=== PATIENT | male | born 1955 | race Caucasian/White ===

== ENCOUNTER 2020-11-15 14:48 | Inpatient (IN) | payer MEDICARE, SELFPAY ==
[2020-11-15] VITALS (7 sets, daily range): BP systolic 110–125; BP diastolic 74–84; PULSE 72–86; RESP 16–18; TEMP 36.1–37; O2SAT 96–98; BMI 24.1; BMI 24.0
--- NOTE | 2020-11-15 15:29 | EDS_ITS ---
HPI History of Present Illness Chief Complaint: ETOH Intox Informant: patient Onset/Context/Timing Onset: Today Context: Gradual Onset Timing: Continuous Worsened by: Nothing Relieved by: Nothing Associated Symptoms Associated Symptoms: Positive for vomiting*, diarrhea* and tremor; Negative for fever*, rash*, seizure, palpatations, change in mental status, trauma, suicidal ideation and homicidal ideation Narrative Narrative: Presents requesting alcohol detox. Patient states he drinks 1 pint of scotch per day. Patient states his last drink was was this morning. Patient states the other day he had some convulsions in his legs. Patient admits to some nausea, vomiting, and diarrhea. Patient denies any hematemesis or coffee- ground emesis. Patient denies any melena or hematochezia. Patient denies any visual or auditory hallucinations. Patient states he does have some floaters in his eyes occasionally and states that sometimes he is more aware of the floaters which cause some waviness in his vision. Patient states she does not see any other people or hear any voices. Patient denies any suicidal or homicidal ideations. Patient has been through detox before. Patient states he was in detox in [place] at [facility] but his last detox was in [place] several months ago. [facility] Medical History Atrial fibrillation COPD (chronic obstructive pulmonary disease) Coronary artery disease Myocardial infarction Pulmonary embolism Stroke Home Medications albuterol sulfate 2 puff INHALATION DAILY PRN PRN 11/15/20 [History Last Taken Unknown] apixaban [Eliquis] 10 mg PO BID 11/15/20 [History Last Taken Unknown] aspirin [Baby Aspirin] 81 mg PO DAILY 11/15/20 [History Last Taken Unknown] atorvastatin 40 mg PO DAILY 11/15/20 [History Last Taken Unknown] cholecalciferol (vitamin D3) [Vitamin D3] 50 mcg PO DAILY 11/15/20 [History Last Taken Unknown] duloxetine 60 mg PO DAILY 11/15/20 [History Last Taken Unknown] fluticasone propionate 1 spray INTRANASAL DAILY 11/15/20 [History Last Taken Unknown] hydroxyzine HCl 25 mg PO TID PRN 11/15/20 [History Last Taken Unknown] magnesium 400 mg PO DAILY 11/15/20 [History Last Taken Unknown] melatonin 3 mg PO QHS 11/15/20 [History Last Taken Unknown] metoprolol succinate 25 mg PO DAILY 11/15/20 [History Last Taken Unknown] metoprolol succinate 50 mg PO QHS 11/15/20 [History Last Taken Unknown] milk thistle 1,000 mg PO DAILY 11/15/20 [History Last Taken Unknown] fmbzusgc-vvy-IS-lycopen-lutein [Centrum Silver Men] 1 tab PO DAILY 11/15/20 [History Last Taken Unknown] pantoprazole 40 mg PO DAILY 11/15/20 [History Last Taken Unknown] potassium 99 mg PO DAILY 11/15/20 [History Last Taken Unknown] thiamine HCl (vitamin B1) [Vitamin B-1] 50 mg PO DAILY 11/15/20 [History Last Taken Unknown] trazodone 50 mg PO QHS 11/15/20 [History Last Taken Unknown] Allergy/AdvReac Type Severity Reaction Status Date / Time No Known Allergies Allergy Verified 11/15/20 14:52 Family History Father Cancer Heart disease Alcoholism Mother Alcoholism Surgical History H/O cardiac radiofrequency ablation Hx of cervical discectomy Social History (Updated 11/15/20 @ 16:38 by Markus GUTIERREZ) household members: family and children housing: house Smoking Status: Current every day smoker tobacco type: cigarettes Smoking packs per day: 1 Smoking cigarettes per day: 20.0 Years smoked: 30 Smoking pack-years: 30.00 alcohol intake: current alcohol intake frequency: 3 or more drinks per day Alcohol type: hard liquor substance use type: marijuana ROS ROS ED Constitutional Constitutional ED: Denies chills or fever(s) Eyes Eyes: Reports change in vision; Denies blurry vision or diplopia ENT ENT ED: Denies rhinorrhea or sore throat Cardiovascular Cardiovascular: Denies chest pain or palpitations Respiratory/Chest Respiratory/Chest: Denies cough or dyspnea Gastrointestinal Gastrointestinal: Reports diarrhea, nausea and vomiting Genitourinary Genitourinary ED: Denies dysuria or hematuria Musculoskeletal Musculoskeletal: Reports back pain and neck pain Integumentary Denies abscess or rash Neurologic Neurologic: Reports weakness; Denies headache(s) Allergic/Immunologic Allergic/Immunologic ED: Denies mouth swelling or urticaria EXAM Physical Exam Const Vital Signs: 11/15/20 14:49 11/15/20 16:27 Temperature 97 F L Temperature Source Temporal Pulse Rate 86 78 Respiratory Rate 16 Blood Pressure 110/77 Blood Pressure Mean 88 Pulse Ox 96 96 Oxygen Delivery Method Room Air Room Air Positive well nourished and well developed General Appearance ED: well developed HEENT Reports moist mucous membranes Neck supple and no JVD Resp normal respiratory effort and clear to auscultation bilaterally Cardio regular rate, regular rhythm and no murmurs GI normal to inspection, nondistended, normoactive bowel sounds and non-tender Palpation: soft Extremity normal to inspection General Extremety ED: Negative for edema or tenderness General Extremity: Negative for edema Neuro oriented x3, CN's II-XII intact bilaterally and no sensory deficits noted Sensorium / Orientation: alert Motor Exam: strength 5/5 throughout Psych mental status grossly normal Skin no rashes or lesions noted MDM MDM MDM Narrative Medical decision making narrative: CBC shows mild anemia with a hemoglobin of 11.6 hematocrit 36.4. Platelets were normal. PT with INR and PTT were essentially within normal limits. Comprehensive metabolic profile shows a slig htly elevated AST of 84 and ALT of 83. Serum alcohol level was elevated at 222. Urine tox screen is ordered and pending. Case was discussed with the hospitalist. She will admit the patient to the hospital for alcohol detox. Patient understands and is agreeable with the plan. All questions were answered. Lab Data Attestation: I reviewed the patient's lab results. Labs: Laboratory Results - last 24 hr 11/15/20 11/15/20 11/15/20 15:14 15:14 15:14 WBC 5.1 RBC 3.95 L Hgb 11.6 L Hct 36.4 L MCV 92.2 MCH 29.4 MCHC 31.9 L RDW Std Deviation 57.1 H RDW Coeff of Clara 17.0 H Plt Count 196 MPV 9.7 Immature Gran % (Auto) 0.200 Neut % (Auto) 52.2 Lymph % (Auto) 37.4 [place] % (Auto) 8.6 Eos % (Auto) 1.2 Baso % (Auto) 0.4 Absolute Neuts (auto) 2.7 Absolute Lymphs (auto) 1.91 Nucleated RBC % 0 PT 15.1 H INR 1.3 APTT 24.2 Sodium 144 Potassium 4.2 Chloride 107 Carbon Dioxide 27.0 Anion Gap 10 BUN 18 Creatinine 1.00 Estim Creat Clear Calc 80.83 Est GFR (MDRD) Af Amer 96 Est GFR (MDRD) Non-Af 80 BUN/Creatinine Ratio 18.0 Glucose 100 Calcium 8.7 Phosphorus Magnesium 2.0 Total Bilirubin 0.30 AST 84 H ALT 83 H Alkaline Phosphatase 93 Total Protein 6.9 Albumin 3.3 Globulin 3.6 Albumin/Globulin Ratio 0.9 Ethyl Alcohol 11/15/20 11/15/20 15:14 15:14 WBC RBC Hgb Hct MCV MCH MCHC RDW Std Deviation RDW Coeff of Clara Plt Count MPV Immature Gran % (Auto) Neut % (Auto) Lymph % (Auto) [place] % (Auto) Eos % (Auto) Baso % (Auto) Absolute Neuts (auto) Absolute Lymphs (auto) Nucleated RBC % PT INR APTT Sodium Potassium Chloride Carbon Dioxide Anion Gap BUN Creatinine Estim Creat Clear Calc Est GFR (MDRD) Af Amer Est GFR (MDRD) Non-Af BUN/Creatinine Ratio Glucose Calcium Phosphorus 3.0 Magnesium Total Bilirubin AST ALT Alkaline Phosphatase Total Protein Albumin Globulin Albumin/Globulin Ratio Ethyl Alcohol 222.0 Treatment and Re-Evaluation Vital Sign Attestation:: Vital signs were reviewed prior to admission. They are stable. Discharge Plan Dx/Rx/DC Orders Clinical Impression: Alcohol withdrawal, Alcohol abuse Disposition Disposition: Acute Care [facility]
[2020-11-15 16:12] LABS: Absolute Lymphocyte Count 1.91 X10^3/uL (0.83-4.51); Absolute Neutrophil Count 2.7 X10^3/uL (2.0-7.7); Basophil# 0.02 X10^3/uL; Basophil% 0.4 % (0-1); Eosinophil# 0.06 X10^3/uL; Eosinophils% 1.2 % (0-5); Hematocrit 36.4 % (40-54); Hemoglobin 11.6 g/dL (13.0-16.5); Lymphocyte # 1.91 X10^3/ul (0.83-4.51); Lymphocyte % 37.4 % (19-41); Mean Corp Hgb Conc 31.9 g/dL (32-36); Mean Corpuscular Hgb 29.4 pg (27.0-32.0); Mean Corpuscular Volume 92.2 fL (80-94); Mean Platelet Vol. 9.7 fl (6.2-12.0); Monocyte# 0.44 X10^3/uL; Monocyte% 8.6 % (0-10); NRBC Flagged by Analyzer 0 % (0-5); Neutrophil # 2.67 X10^3/uL (2.7-7.7); Neutrophil % 52.2 % (47-70); Platelet Count 196 K/mm3 (150-450); RBC Distribution Width SD 57.1 fl (35.1-43.9); Red Blood Count 3.95 M/mm3 (4.6-6.2); White Blood Count 5.1 K/mm3 (4.4-11.0)
[2020-11-15 16:30] LABS: International Normalized Ratio 1.3; Prothrombin Time (Protime)PT. 15.1 SECONDS (11.7-14.9)
[2020-11-15 16:31] LABS: Partial Thromboplast Time 24.2 Seconds (24.1-36.2)
--- NOTE | 2020-11-15 16:32 | HP.PCM.HOS_ITS ---
Documented by User: Markus GUTIERREZ 11/15/20 16:55 HPI - General General Date of Admission: 11/15/20 Date of Service: 11/15/20 Chief Complaint: Seeking ETOH detox HPI Narrative CYNDEE DOWELL is a 65 M who presents to the ED on 11/15/2020 with a chief complaint of requesting alcohol detox/impending withdrawal. Patient reports that his last drink was earlier this morning where he endorses having a couple of shots of scotch. Patient reports an 11-year history of drinking 1 pint of scotch each day. Patient reports that he began drinking about 11 years ago after the of his brother. Patient denies tremors, visual hallucinations, seizures or N/V/D. Patient has gone through acute withdrawal before and says that he has experienced all the symptoms, but denies them currently happening. Patient has u nsuccessfully tried to quit drinking in the past. [facility] Medical History (Updated 11/15/20 @ 18:05 by Nhung Lucio) Alcohol abuse Anxiety Atrial fibrillation Chronic pain COPD (chronic obstructive pulmonary disease) Coronary artery disease Depression Emphysema lung Former smoker GERD (gastroesophageal reflux disease) Hearing loss, left Hearing loss, right Myocardial infarction KOKI on CPAP Pulmonary embolism PVC (premature ventricular contraction) Stroke Substance abuse Vision loss of left eye Vision loss of right eye Home Medications albuterol sulfate 2 puff INHALATION DAILY PRN PRN 11/15/20 [History Last Taken Unknown] apixaban [Eliquis] 10 mg PO BID 11/15/20 [History Last Taken Unknown] aspirin [Baby Aspirin] 81 mg PO DAILY 11/15/20 [History Last Taken Unknown] atorvastatin 40 mg PO DAILY 11/15/20 [History Last Taken Unknown] cholecalciferol (vitamin D3) [Vitamin D3] 50 mcg PO DAILY 11/15/20 [History Last Taken Unknown] duloxetine 60 mg PO DAILY 11/15/20 [History Last Taken Unknown] fluticasone propionate 1 spray INTRANASAL DAILY 11/15/20 [History Last Taken Unknown] hydroxyzine HCl 25 mg PO TID PRN 11/15/20 [History Last Taken Unknown] magnesium 400 mg PO DAILY 11/15/20 [History Last Taken Unknown] melatonin 3 mg PO QHS 11/15/20 [History Last Taken Unknown] metoprolol succinate 25 mg PO DAILY 11/15/20 [History Last Taken Unknown] metoprolol succinate 50 mg PO QHS 11/15/20 [History Last Taken Unknown] milk thistle 1,000 mg PO DAILY 11/15/20 [History Last Taken Unknown] oevfnoou-nop-HH-lycopen-lutein [Centrum Silver Men] 1 tab PO DAILY 11/15/20 [History Last Taken Unknown] pantoprazole 40 mg PO DAILY 11/15/20 [History Last Taken Unknown] potassium 99 mg PO DAILY 11/15/20 [History Last Taken Unknown] thiamine HCl (vitamin B1) [Vitamin B-1] 50 mg PO DAILY 11/15/20 [History Last Taken Unknown] trazodone 50 mg PO QHS 11/15/20 [History Last Taken Unknown] Allergy/AdvReac Type Severity Reaction Status Date / Time No Known Allergies Allergy Verified 11/15/20 14:52 Family History Father Cancer Heart disease Alcoholism Mother Alcoholism Surgical History H/O cardiac radiofrequency ablation Hx of cervical discectomy Social History (Updated 11/15/20 @ 16:38 by Markus GUTIERREZ) household members: family and children housing: house Smoking Status: Current every day smoker tobacco type: cigarettes Smoking packs per day: 1 Smoking cigarettes per day: 20.0 Years smoked: 30 Smoking pack-years: 30.00 alcohol intake: current alcohol intake frequency: 3 or more drinks per day Alcohol type: hard liquor substance use type: marijuana ROS Constitutional Constitutional: Denies anorexia, change in weight, chills, fatigue, fever(s), malaise, night sweats, weakness or other Eyes Eyes: Denies blurry vision, change in eye color, change in vision, discharge from eye(s), double vision, erythema, eye pain, loss of vision or other ENT HEENT: Denies abnormal hearing, dysphagia, ear pain, epistaxis, headache(s), hearing loss, nasal congestion, nasal discharge, post nasal drip, sinus pressure, sore throat or other Cardiovascular Cardiovascular: Denies chest pain, claudication, dyspnea on exertion, edema, li ghtheadedness, orthopnea, palpitations, paroxysmal nocturnal dyspnea, rapid heart rate, syncope or other Respiratory/Chest Respiratory/Chest: Denies cough, dyspnea, excessive phlegm production, hemoptysis, productive cough, shortness of breath at rest, shortness of breath with exertion, wheezing or other Gastrointestinal Gastrointestinal: Denies abdominal pain, coffee ground emesis, constipation, diarrhea, dyspepsia, hematemesis, hematochezia, loose stools, melena, nausea, vomiting or other Genitourinary Genitourinary: Denies burning urination, difficulty urinating, dysuria, hematuria, nocturia, urinary frequency, urinary hesitancy, urinary incontinence, urinary urgency or other Musculoskeletal Musculoskeletal: Denies arthralgias, back pain, joint pain, joint stiffness, joint swelling, myalgias, neck pain or other Neurologic Neurologic: Denies abnormal gait, abnormal speech, confusion, disequilibrium, dizziness, focal weakness, headache(s), numbness, paresthesias, seizure-like activity, seizures, syncope, tingling, tremor(s) or other Psychiatric Psychiatric: Denies anxiety, depression, homicidal ideation, suicidal ideation or other Endocrine Endocrinology: Denies change in body appearance, cold intolerance, excessive sweating, heat intolerance, polydipsia, polyuria or other Hematologic/Lymphatic Hematologic/Lymphatic: Denies anemia, easy bleeding, easy bruising, lymphadenopathy or other Allergic/Immunologic Allergic/Immunologic: Denies rhinitis, hives, eczemia, asthma or other Vital Signs Vital Signs Vital Signs: 11/15/20 14:49 11/15/20 16:27 Temperature 97 F L Temperature Source Temporal Pulse Rate 86 78 Respiratory Rate 16 Blood Pressure 110/77 Blood Pressure Mean 88 Pulse Ox 96 96 Oxygen Delivery Method Room Air Room Air Weight Weight: 178 lb Body Mass Index (BMI) 24.1 Physical Exam Const alert, oriented x3 and no apparent distress General Appearance: cooperative HEENT normocephalic, head/scalp atraumatic and hearing grossly normal bilaterally Eyes PERRL, EOMs intact bilaterally and conjunctivae normal Neck no lymphadenopathy, supple and no JVD Resp normal respiratory effort, no retractions, no use of accessory muscles and clear to auscultation bilaterally Cardio regular rate, regular rhythm, no murmurs and no JVD GI normal to inspection, nondistended, normoactive bowel sounds, soft to palpation and non-tender Extremity normal to inspection, full ROM and no clubbing, cyanosis or edema Skin no rashes or lesions noted, no wounds, skin turgor normal and no jaundice Neuro CN's II-XII intact bilaterally Psych affect normal Results Lab / Micro Data Result Diagrams: 11/15/20 15:14 11/15/20 15:14 Labs: Laboratory Results - last 24 hr 11/15/20 15:14: WBC 5.1, RBC 3.95 L, Hgb 11.6 L, Hct 36.4 L, MCV 92.2, MCH 29.4, MCHC 31.9 L, RDW Std Deviation 57.1 H, RDW Coeff of Clara 17.0 H, Plt Count 196, MPV 9.7, Immature Gran % (Auto) 0.200, Neut % (Auto) 52.2, Lymph % (Auto) 37.4, [place] % (Auto) 8.6, Eos % (Auto) 1.2, Baso % (Auto) 0.4, Absolute Neuts (auto) 2.7, Absolute Lymphs (auto) 1.91, Nucleated RBC % 0 11/15/20 15:14: PT 15.1 H, INR 1.3, APTT 24.2 11/15/20 15:14: Phosphorus 3.0 Assessment & Plan Assessment/Plan (1) Alcohol abuse: PLAN: Patient is a 65-year-old male who presents to the ED at [facility] on 11/15/2020 with a chief complaint of requesting detox from alcohol. Patient will be admitted for medical stabilization. 1) alcohol abuse Patient endorses an 11-year history of drinking 1 pint of scotch per day. Denies any other forms of alcohol. Patient reports that his last drink of alcohol was this morning where he had a couple of shots of scotch. Patient denies any withdrawal symptoms to include seizure, tremors, visual hallucinations or N/V/D. Patient does not appear in acute distress. CBC and BMP are unremarkable. Ethyl alcohol currently 222. Plan; placed on MS 3, initiate buprenorphine taper, Tylenol as needed, bisacodyl as needed, Bentyl as needed, folic acid initiated, multivitamin initiated, gabapentin as needed, Vistaril as needed, Motrin as needed, Imodium as needed, trazodone as needed, senna as needed, thiamine initiated. 2) atrial fibrillation Currently on metoprolol for rate control and Eliquis for anticoagulation. Continue home A. fib regimen. 3) COPD Stable, not in acute exacerbation. Continue albuterol, duo nebs ordered. DVT prophylaxis -Eliquis Patient seen by Markus Angeles PA-C, under the supervision of Dr. Enrique. Documented by User: Dr. Soco Enrique MD 11/15/20 20:18 HPI - General General Date of Admission: 11/15/20 [facility] Medical History (Updated 11/15/20 @ 18:05 by Nhung Lucio) Alcohol abuse Anxiety Atrial fibrillation Chronic pain COPD (chronic obstructive pulmonary disease) Coronary artery disease Depression Emphysema lung Former smoker GERD (gastroesophageal reflux disease) Hearing loss, left Hearing loss, right Myocardial infarction KOKI on CPAP Pulmonary embolism PVC (premature ventricular contraction) Stroke Substance abuse Vision loss of left eye Vision loss of right eye Home Medications albuterol sulfate 2 puff INHALATION DAILY PRN PRN 11/15/20 [History Last Taken Unknown] apixaban [Eliquis] 10 mg PO BID 11/15/20 [History Last Taken Unknown] aspirin [Baby Aspirin] 81 mg PO DAILY 11/15/20 [History Last Taken Unknown] atorvastatin 40 mg PO DAILY 11/15/20 [History Last Taken Unknown] cholecalciferol (vitamin D3) [Vitamin D3] 50 mcg PO DAILY 11/15/20 [History Last Taken Unknown] duloxetine 60 mg PO DAILY 11/15/20 [History Last Taken Unknown] fluticasone propionate 1 spray INTRANASAL DAILY 11/15/20 [History Last Taken Unknown] hydroxyzine HCl 25 mg PO TID PRN 11/15/20 [History Last Taken Unknown] magnesium 400 mg PO DAILY 11/15/20 [History Last Taken Unknown] melatonin 3 mg PO QHS 11/15/20 [History Last Taken Unknown] metoprolol succinate 25 mg PO DAILY 11/15/20 [History Last Taken Unknown] metoprolol succinate 50 mg PO QHS 11/15/20 [History Last Taken Unknown] milk thistle 1,000 mg PO DAILY 11/15/20 [History Last Taken Unknown] pmoziwup-dzx-PN-lycopen-lutein [Centrum Silver Men] 1 tab PO DAILY 11/15/20 [History Last Taken Unknown] pantoprazole 40 mg PO DAILY 11/15/20 [History Last Taken Unknown] potassium 99 mg PO DAILY 11/15/20 [History Last Taken Unknown] thiamine HCl (vitamin B1) [Vitamin B-1] 50 mg PO DAILY 11/15/20 [History Last Taken Unknown] trazodone 50 mg PO QHS 11/15/20 [History Last Taken Unknown] Allergy/AdvReac Type Severity Reaction Status Date / Time No Known Allergies Allergy Verified 11/15/20 14:52 Family History Father Cancer Heart disease Alcoholism Mother Alcoholism Surgical History H/O cardiac radiofrequency ablation Hx of cervical discectomy Social History (Updated 11/15/20 @ 16:38 by Markus GUTIERREZ) household members: family and children housing: house Smoking Status: Current every day smoker tobacco type: cigarettes Smoking packs per day: 1 Smoking cigarettes per day: 20.0 Years smoked: 30 Smoking pack-years: 30.00 alcohol intake: current alcohol intake frequency: 3 or more drinks per day Alcohol type: hard liquor substance use type: marijuana Results Lab / Micro Data Result Diagrams: 11/15/20 15:14 11/15/20 15:14
[2020-11-15 16:34] LABS: ALB/GLOB Ratio 0.9 RATIO (0.9-2.4); AST(SGOT) 84 U/L (15-37); Alanine Aminotransfer ALT/SGPT 83 U/L (16-61); Albumin, Serum 3.3 g/dL (3.2-5.0); Alkaline Phosphatase 93 U/L (45-117); Anion Gap 10 (5-15); BUN 18 mg/dL (7-18); Calcium,Total 8.7 mg/dL (8.5-10.1); Chloride 107 mmol/L (98-107); EST Glomerular Filtration Rate 80 mL/min (>60); Est Glom Filt Rate - Afr Amer 96 mL/min (>60); Estimated Creatinine Clearance 80.83 ml/min; Globulin 3.6 g/dL (2.2-4.2); Glucose 100 mg/dL (74-106); Potassium 4.2 mmol/L (3.5-5.1); Protein, Total 6.9 g/dL (6.4-8.2); Sodium Level 144 mmol/L (136-145)
--- NOTE | 2020-11-15 16:49 | CM.ED ---
SOCIAL WORK Referral Source: Self-referral Reason for Consult: Substance Abuse-requesting detox from alcohol Patient presents to ER for detox from alcohol. Patient reports drinks a pint of scotch/day. Patient reports last drink was this morning. RAMP agreement completed with nursing. Addiction TherapistAnna notified of admission. Plan: Admit to RAMP [facility] [place], [employer]
--- NOTE | 2020-11-15 16:52 | NURSING ---
MED SURG WHITE ALCOHOL WITHDRAWAL
[2020-11-15] MEDS: Phenobarbital 32.4 MG Tablet PO ×2 (18:36→21:48)
[2020-11-15] MEDS: Lactated Ringers 1,000 ML 125 ML IV (18:36)
[2020-11-15] MEDS: Ipratropium/Albuterol Sulfate 3 ML AMPUL.NEB INHALATION (18:44)
--- NOTE | 2020-11-15 18:58 | CPS ---
Patient's home CPAP setup at bedside. CPAP pressure of 12 for home machine with no oxygen added
[2020-11-15] MEDS: traZODone 100 MG Tablet PO (21:48)
[2020-11-15] MEDS: Metoprolol(XL)Succ 50 MG Tablet PO (21:49)
[2020-11-15] MEDS: Enoxaparin 80 MG/0.8 ML Syringe SC (21:49)
[2020-11-15] MEDS: Ibuprofen 600 MG Tablet PO (21:49)
--- NOTE | 2020-11-15 22:32 | PCS.PANDOC ---
PANDEMIC DOCUMENTATION INITIATED: Date: 09/26/2020 Time: 1900 Emergency documentation initiated 11/15/20 @ 2100
[2020-11-15 22:33] LABS: Amphetamine Urine VISTA NEGATIVE (<1000 ng/mL); Barbiturate Urine VISTA POSITIVE (< 200 ng/mL); Benzodiazepine Urine VISTA NEGATIVE (< 200 ng/mL); Cocaine Urine VISTA NEGATIVE (< 300 ng/mL); Ecstacy Urine VISTA NEGATIVE (< 500 ng/mL); Methadone Urine VISTA NEGATIVE (< 300 ng/mL); PCP Urine VISTA NEGATIVE (< 25 ng/mL); THC Urine VISTA POSITIVE (< 50 ng/mL); Vista UDS pH Range 5
[2020-11-16] VITALS (11 sets, daily range): BP systolic 119–139; BP diastolic 62–92; PULSE 60–75; RESP 16–18; TEMP 36.4–36.7; O2SAT 96–98
[2020-11-16] MEDS: Phenobarbital 32.4 MG Tablet PO ×6 (02:17→21:20)
[2020-11-16] MEDS: Ipratropium/Albuterol Sulfate 3 ML AMPUL.NEB INHALATION ×3 (07:11→20:12)
[2020-11-16] MEDS: Thiamine Hydrochloride 100 MG Tablet PO (10:56)
[2020-11-16] MEDS: DULoxetine Hcl 60 MG Capsule PO (10:56)
[2020-11-16] MEDS: Folic Acid 1 MG Tablet PO (10:56)
[2020-11-16] MEDS: Metoprolol(XL)Succ 25 MG Tablet PO (10:57)
[2020-11-16] MEDS: Pantoprazole Sodium 40 MG Tablet PO (10:57)
[2020-11-16] MEDS: Atorvastatin Calcium 40 MG Tablet PO (10:57)
[2020-11-16] MEDS: Aspirin 81 MG TAB.CHEW PO (10:57)
[2020-11-16] MEDS: Enoxaparin 80 MG/0.8 ML Syringe SC ×2 (10:58→21:11)
--- NOTE | 2020-11-16 11:04 | ADDICTION ---
This copy writer met with PT to conduct ASAM, MSE, AUDIT assessments and to plan for d/c. PT A+Ox4 and participated actively. All assessments completed, faxed to [facility] and placed in PT's chart. PT plans to f/u with individual counselor at [facility] for follow-up recovery services. PT will be transported by peer supporter Evangelist Aldrich post d/c from [facility].
--- NOTE | 2020-11-16 12:13 | PN.HOSP_ITS ---
Documented by User: Markus GUTIERREZ 11/16/20 12:21 Subjective Subjective Patient is a 65-year-old male comfortably resting in bed, alert and orient x3. Patient denies tremor, visual hallucinations or N/V/D. Patient reports symptoms are controlled on as needed medications. Does not appear in acute distress. Objective Data Objective Data Vital Signs: Vital Signs Temp Pulse Resp BP Pulse Ox 97.8 F 70 18 139/81 H 98 11/16/20 06:21 11/16/20 10:57 11/16/20 10:53 11/16/20 10:53 11/16/20 10:53 Oxygen Delivery Method Room Air Weight: 176 lb 12.972 oz Body Mass Index (BMI) 24.0 Intake & Output: Intake and Output for Last 24 Hours 11/14/20 11/15/20 11/16/20 23:59 23:59 23:59 Intake Total 1700 / 1700 Balance 1700 / 1700 Lab / Micro Data Result Diagrams: 11/15/20 15:14 11/15/20 15:14 Labs: Laboratory Results - last 24 hr 11/15/20 15:14: WBC 5.1, RBC 3.95 L, Hgb 11.6 L, Hct 36.4 L, MCV 92.2, MCH 29.4, MCHC 31.9 L, RDW Std Deviation 57.1 H, RDW Coeff of Clara 17.0 H, Plt Count 196, MPV 9.7, Immature Gran % (Auto) 0.200, Neut % (Auto) 52.2, Lymph % (Auto) 37.4, Harrison % (Auto) 8.6, Eos % (Auto) 1.2, Baso % (Auto) 0.4, Absolute Neuts (auto) 2.7, Absolute Lymphs (auto) 1.91, Nucleated RBC % 0 11/15/20 15:14: PT 15.1 H, INR 1.3, APTT 24.2 11/15/20 15:14: Sodium 144, Potassium 4.2, Chloride 107, Carbon Dioxide 27.0, Anion Gap 10, BUN 18, Creatinine 1.00, Estim Creat Clear Calc 80.83, Est GFR (MDRD) Af Amer 96, Est GFR (MDRD) Non-Af 80, BUN/Creatinine Ratio 18.0, Glucose 100, Calcium 8.7, Magnesium 2.0, Total Bilirubin 0.30, AST 84 H, ALT 83 H, Alkaline Phosphatase 93, Total Protein 6.9, Albumin 3.3, Globulin 3.6, Albumin/Globulin Ratio 0.9 11/15/20 15:14: Ethyl Alcohol 222.0 11/15/20 15:14: Phosphorus 3.0 11/15/20 21:35: Urine Opiates Screen NEGATIVE, Urine Methadone Screen NEGATIVE, Ur Barbiturates Screen POSITIVE H, Ur Phencyclidine Scrn NEGATIVE, Ur Ampheta mines Screen NEGATIVE, U Methamphetamin-MDMA NEGATIVE, U Benzodiazepines Scrn NEGATIVE, Urine Cocaine Screen NEGATIVE, U Cannabinoids Screen POSITIVE H, Ur Drug Screen Comment Physical Exam Const alert, oriented x3 and no apparent distress HEENT head/scalp atraumatic and moist oral mucous membranes Head and Scalp: normocephalic Eyes PERRL, EOMs intact bilaterally and conjunctivae normal Neck no lymphadenopathy, supple and no JVD Resp normal respiratory effort, no retractions, no use of accessory muscles and clear to auscultation bilaterally Cardio regular rate, regular rhythm, no murmurs and no JVD GI normal to inspection, nondistended, normoactive bowel sounds, soft to palpation and non-tender Extremity normal to inspection, full ROM and no clubbing, cyanosis or edema Skin no rashes or lesions noted, no wounds, skin turgor normal and no jaundice Neuro CN's II-XII intact bilaterally Psych affect normal Assessment & Plan Assessment/Plan (1) Alcohol abuse: (2) Atrial fibrillation: (3) Coronary artery disease: (4) COPD (chronic obstructive pulmonary disease): PLAN: Day 1 Discharge planning: Patient will discharge home when medically ready. Patient expressed desire to do outpatient therapy on discharge. 1) alcohol abuse Patient denies any withdrawal symptoms. Small tremor observed in the right hand on my examination, although patient did not appear to be in acute distress. Plan; remain admitted to MedSur floor, continue buprenorphine taper, continue folic acid supplementation, continue thiamine supplementation, as needed m edications ordered. 2) atrial fibrillation Currently on metoprolol for rate control and Eliquis for anticoagulation. Eliquis held due to buprenorphine taper and concerns over medications interactions. Lovenox initiated while admitted 3) COPD Stable, not in acute exacerbation. Continue albuterol, duo nebs ordered. DVT prophylaxis - Lovenox Patient seen by Markus Angeles PA-C, under the supervision of Dr. Taylor. Documented by User: Dr. Sedrick Taylor MD 11/16/20 14:50 Subjective Subjective Patient has mild tremors, anxiety, shakiness. Objective Data Lab / Micro Data Result Diagrams: 11/15/20 15:14 11/15/20 15:14 Physical Exam Narrative General: Alert, Oriented x3, Cooperative HEENT: Atraumatic, PERRLA, EOMI, Normocephalic Oral: No Gingival or Mucosal Lesions/ Ulcerations Neck: Supple, No JVD, Negative Carotid Bruits Lungs: Air entry diminished in bilateral lung bases. No crepitation/rhonchi Cardiovascular: Regular rate, Regular Rhythm, Normal S1, Normal S2, No murmurs Abdomen: Bowel Sounds Present, Soft, Non Tender, Non-Distended : No renal angle tenderness. No suprapubic tenderness. Extremities: No edema, Capillary Refill Less than 3 Seconds Skin: No rashes, No breakdown Musculoskeletal: No Tenderness to Palpation of Joints or Extremities Neurological: Cranial nerves II-XII grossly intact, DTR 2+/4 and Symmetrical, Neuro grossly intact Psych/Mental Status: Flat affect Assessment & Plan Assessment/Plan (1) Alcohol abuse: PLAN: This patient was seen in conjunction with BRENDA Hayward. I have independently interviewed and examined the patient and reviewed pertinent history, examination findings, laboratory and plan of management. I have reviewed the note and agree with the documented findings with the few additional points. In brief, patient is admitted for acute alcohol withdrawal syndrome with history of chronic alcohol use and dependence. He is on phenobarbital regimen along with other supportive medications. On folic acid and thiamine. Patient also history of A. fib and is on metoprolol and Eliquis at home. Eliquis is on hold while the patient is on phenobarbital. Other comorbidities, COPD as mentioned above I have discussed my assessment with BRENDA Hayward and orders have been reviewed. Charges/Coding Visit Charges Inpatient E&M: 45925 Subs Hosp L2
[2020-11-16] MEDS: Acetaminophen 500 MG Tablet PO (13:19)
[2020-11-16] MEDS: Ibuprofen 600 MG Tablet PO (21:12)
[2020-11-16] MEDS: traZODone 100 MG Tablet PO (21:12)
[2020-11-16] MEDS: Metoprolol(XL)Succ 50 MG Tablet PO (21:12)
[2020-11-17] VITALS (9 sets, daily range): BP systolic 113–136; BP diastolic 72–80; PULSE 56–71; RESP 16–18; TEMP 36.2–36.9; O2SAT 98–99
[2020-11-17] MEDS: Phenobarbital 32.4 MG Tablet PO ×6 (02:45→23:13)
[2020-11-17] MEDS: Ipratropium/Albuterol Sulfate 3 ML AMPUL.NEB INHALATION ×3 (07:33→19:13)
[2020-11-17] MEDS: DULoxetine Hcl 60 MG Capsule PO (08:00)
[2020-11-17] MEDS: Metoprolol(XL)Succ 25 MG Tablet PO (08:00)
[2020-11-17] MEDS: Aspirin 81 MG TAB.CHEW PO (08:00)
[2020-11-17] MEDS: Thiamine Hydrochloride 100 MG Tablet PO (08:00)
[2020-11-17] MEDS: Pantoprazole Sodium 40 MG Tablet PO (08:00)
[2020-11-17] MEDS: Atorvastatin Calcium 40 MG Tablet PO (08:00)
[2020-11-17] MEDS: Folic Acid 1 MG Tablet PO (08:00)
[2020-11-17] MEDS: Enoxaparin 80 MG/0.8 ML Syringe SC ×2 (08:01→21:47)
--- NOTE | 2020-11-17 10:08 | PCM.PN.HOSP ---
Subjective Subjective Patient has some visual hallucinations. Chronic tinnitus. Patient also gets some auditory hallucination but does not hear any voices dictating. Objective Data Objective Data Vital Signs: Vital Signs Temp Pulse Resp BP Pulse Ox 97.5 F L 56 L 16 136/80 H 99 11/17/20 08:08 11/17/20 08:08 11/17/20 08:08 11/17/20 08:08 11/17/20 08:08 Oxygen Delivery Method Room Air Weight: 176 lb 12.972 oz Body Mass Index (BMI) 24.0 Intake & Output: Intake and Output for Last 24 Hours 11/15/20 11/16/20 11/17/20 23:59 23:59 23:59 Intake Total 1700 / 1700 Balance 1700 / 1700 Lab / Micro Data Result Diagrams: 11/15/20 15:14 11/15/20 15:14 Physical Exam Narrative General: Alert, Oriented x3, Cooperative HEENT: Atraumatic, PERRLA, EOMI, Normocephalic Oral: No Gingival or Mucosal Lesions/ Ulcerations Neck: Supple, No JVD, Negative Carotid Bruits Lungs: Air entry diminished in bilateral lung bases. No crepitation/rhonchi Cardiovascular: Regular rate, Regular Rhythm, Normal S1, Normal S2, No murmurs Abdomen: Bowel Sounds Present, Soft, Non Tender, Non-Distended : No renal angle tenderness. No suprapubic tenderness. Extremities: No edema, Capillary Refill Less than 3 Seconds Skin: No rashes, No breakdown Musculoskeletal: No Tenderness to Palpation of Joints or Extremities Neurological: Cranial nerves II-XII grossly intact, DTR 2+/4 and Symmetrical, Neuro grossly intact Psych/Mental Status: Flat affect Assessment & Plan Assessment/Plan (1) Alcohol abuse: PLAN: 1) Acute alcohol withdrawal is a history of chronic alcohol use and dependence: Patient has mild tremors. Admitted on MedSurg floor. On buprenorphine based other supportive medications. Mild visual and auditory hallucination. No seizure. 2)Paroxysmal atrial fibrillation: On metoprolol Rate is controlled. Eliquis held due to buprenorphine taper and concerns over medications interactions. Lovenox initiated while admitted 3) COPD not in acute exacerbation. Continue albuterol, duo nebs ordered. DVT prophylaxis - Lovenox Charges/Coding Visit Charges Inpatient E&M: 54763 Subs Hosp L2
--- NOTE | 2020-11-17 10:26 | ADDICTION ---
This proposal writer met with Pt to discuss d/c planning. Pt reports he plans to follow-through with seeking treatment and being involve with AA on a regular basis.
[2020-11-17] MEDS: Acetaminophen 500 MG Tablet PO ×2 (16:13→20:38)
[2020-11-17] MEDS: Gabapentin 300 MG Capsule PO (20:38)
[2020-11-17] MEDS: traZODone 100 MG Tablet PO (21:47)
[2020-11-17] MEDS: Metoprolol(XL)Succ 50 MG Tablet PO (21:48)
[2020-11-18] VITALS (9 sets, daily range): BP systolic 96–113; BP diastolic 59–73; PULSE 66–75; RESP 16–18; TEMP 36.2–36.5; O2SAT 97–98
[2020-11-18] MEDS: Phenobarbital 32.4 MG Tablet PO ×4 (03:01→20:49)
[2020-11-18] MEDS: hydrOXYzine PAM 25 MG Capsule 50 MG PO (03:04)
[2020-11-18] MEDS: Ipratropium/Albuterol Sulfate 3 ML AMPUL.NEB INHALATION ×3 (07:11→18:56)
[2020-11-18] MEDS: DULoxetine Hcl 60 MG Capsule PO (08:57)
[2020-11-18] MEDS: Thiamine Hydrochloride 100 MG Tablet PO (08:57)
[2020-11-18] MEDS: Aspirin 81 MG TAB.CHEW PO (08:58)
[2020-11-18] MEDS: Atorvastatin Calcium 40 MG Tablet PO (08:58)
[2020-11-18] MEDS: Pantoprazole Sodium 40 MG Tablet PO (08:58)
[2020-11-18] MEDS: Folic Acid 1 MG Tablet PO (08:58)
[2020-11-18] MEDS: Enoxaparin 80 MG/0.8 ML Syringe SC ×2 (08:58→21:07)
--- NOTE | 2020-11-18 09:52 | CASEMGMT ---
RUBÉN received a message that the person from [facility] to warp picker pt is running late. However, pt is not being discharged today. RUBÉN called Evangelist Aldrich from [facility] to let him know that pt is not leaving today, he states that they were aware. He asked if we have someone to take him tomorrow. RUBÉN explained that Anna from [facility] will be in touch w/him about this. Evangelist states he is crisis intervention counselor and will ask his repair department supervisor as well about this. SIMI Holman
--- NOTE | 2020-11-18 10:44 | ADDICTION ---
This worker arranged transport by PT's son, Nick. He will be at [facility] at 10am on 11/19 to pick PT up.
[2020-11-18] MEDS: Acetaminophen 500 MG Tablet PO ×2 (14:05→21:06)
--- NOTE | 2020-11-18 14:27 | PCM.PN.HOSP ---
Subjective Subjective Feeling well. Still tremulous. Has chronic tinnitus but states that he has still hearing voices but states is likely not from hallways. Objective Data Objective Data Vital Signs: Vital Signs Temp Pulse Resp BP Pulse Ox 36.2 C L 68 18 98/65 98 11/18/20 09:00 11/18/20 12:26 11/18/20 12:26 11/18/20 09:28 11/18/20 09:00 Oxygen Delivery Method Room Air Weight: 80.2 kg Body Mass Index (BMI) 24.0 Intake & Output: Intake and Output for Last 24 Hours 11/16/20 11/17/20 11/18/20 23:59 23:59 23:59 Intake Total 1700 / 1700 Balance 1700 / 1700 Lab / Micro Data Result Diagrams: 11/15/20 15:14 11/15/20 15:14 Physical Exam Const alert Resp normal respiratory effort, no retractions, no use of accessory muscles and clear to auscultation bilaterally Cardio regular rate, regular rhythm, S1 normal heart sound and S2 normal heart sound GI normal to inspection, nondistended, normoactive bowel sounds, soft to palpation, non-tender and non-distended Extremity normal to inspection Assessment & Plan Assessment/Plan (1) Alcohol withdrawal: QUALIFIERS: Complication of substance-induced condition: uncomplicated Qualified Code(s): F10.230 - Alcohol dependence with withdrawal, uncomplicated PLAN: 1.acute alcohol withdrawal ongoing continue phenobarbital taper 2. afib on metoprolol enoxaparin while on phenobarbital. 3. Disposition: in 1-2 days, if stable. Charges/Coding Visit Charges Inpatient E&M: 72458 Subs Hosp L2
[2020-11-18] MEDS: Gabapentin 300 MG Capsule PO (21:06)
[2020-11-18] MEDS: Metoprolol(XL)Succ 50 MG Tablet PO (21:06)
[2020-11-18] MEDS: traZODone 100 MG Tablet PO (21:07)
[2020-11-19] VITALS (8 sets, daily range): BP systolic 101–122; BP diastolic 66–77; PULSE 67–85; RESP 16–18; TEMP 36.1–36.6; O2SAT 94–99
[2020-11-19] MEDS: Phenobarbital 32.4 MG Tablet PO ×4 (03:01→21:08)
[2020-11-19] MEDS: Ipratropium/Albuterol Sulfate 3 ML AMPUL.NEB INHALATION ×3 (08:22→18:55)
[2020-11-19] MEDS: Aspirin 81 MG TAB.CHEW PO (08:45)
[2020-11-19] MEDS: Folic Acid 1 MG Tablet PO (08:45)
[2020-11-19] MEDS: Thiamine Hydrochloride 100 MG Tablet PO (08:45)
[2020-11-19] MEDS: Enoxaparin 80 MG/0.8 ML Syringe SC ×2 (08:52→22:21)
[2020-11-19] MEDS: Pantoprazole Sodium 40 MG Tablet PO (08:53)
[2020-11-19] MEDS: DULoxetine Hcl 60 MG Capsule PO (08:54)
[2020-11-19] MEDS: Atorvastatin Calcium 40 MG Tablet PO (08:54)
--- NOTE | 2020-11-19 10:02 | NURSING ---
called pt's son Nick as soon as said he would not be d/c - he will be staying for continued symptom management- son was very upset as he was already in route from [place] to hospital- apologies were made but pt was angry and said that pt will have to find anither ride when he is d/c
--- NOTE | 2020-11-19 10:49 | CASEMGMT ---
SOCIAL WORK Updated by CM, physician keeping patient another day. Son was to transport patient home and was en route to hospital when called by nursing to update patient will be staying in hospital. Son was angry and frustrated due to already being en route to hospital and reported will not provide transport for patient at discharge. Call to Anna, Addiction Therapist to update on above. Anna to follow up with patient today. Virgen Sampson, PUBLIC TRANSIT BUS DRIVER, CLOTH MEASURER MACHINE
--- NOTE | 2020-11-19 13:38 | PN.HOSP_ITS ---
Subjective Subjective States that his son is en route to pick him up. Still states that he is having some tremors but improved. States that he is hearing some voices which is beyond his normal tenderness. Does have some kind of visual issue in his periphery which is not normal for him. Objective Data Objective Data Vital Signs: Vital Signs Temp Pulse Resp BP Pulse Ox 36.5 C L 67 16 101/67 97 11/19/20 08:38 11/19/20 08:55 11/19/20 08:38 11/19/20 08:55 11/19/20 08:38 Oxygen Delivery Method Room Air Weight: 80.2 kg Body Mass Index (BMI) 24.0 Lab / Micro Data Result Diagrams: 11/15/20 15:14 11/15/20 15:14 Physical Exam Const Constitutional Narrative: Up in bed. In street close. Peers better than he did yesterday. Assessment & Plan Assessment/Plan (1) Alcohol withdrawal: QUALIFIERS: Complication of substance-induced condition: uncomplicated Qualified Code(s): F10.230 - Alcohol dependence with withdrawal, uncomplicated PLAN: 1.acute alcohol withdrawal ongoing, but improved today Patient anxious to go home but I advised him since he still having symptoms to stay longer before he can start with his outpatient therapy. Told him that the reason he is here is to get medically stabilized so that he can focus on long- term addiction and recovery. He was in agreement and will stay here for another day. continue phenobarbital taper Phenobarbital will be completed on the that will be determined if the patient is medically stable for discharge or if he requires prolonged treatment. 2. afib on metoprolol enoxaparin while on phenobarbital. 3. Disposition: To be determined. Once patient is medically stable from alcohol withdrawal. Greater than 25 minutes which greater than 50 in the time was counseling patient about staying in the hospital longer explained the risks of him going home to early including delirium tremens or worsening alcohol withdrawal. Charges/Coding Visit Charges Inpatient E&M: 26386 Subs Hosp L2
[2020-11-19] MEDS: Acetaminophen 500 MG Tablet PO (15:39)
[2020-11-19] MEDS: Metoprolol(XL)Succ 50 MG Tablet PO (21:08)
[2020-11-19] MEDS: traZODone 100 MG Tablet PO (22:21)
[2020-11-20] VITALS (9 sets, daily range): BP systolic 93–117; BP diastolic 65–78; PULSE 64–82; RESP 16–18; TEMP 36.4–36.8; O2SAT 94–100
[2020-11-20] MEDS: hydrOXYzine PAM 25 MG Capsule 50 MG PO ×4 (02:45→20:51)
[2020-11-20] MEDS: Ipratropium/Albuterol Sulfate 3 ML AMPUL.NEB INHALATION ×3 (07:42→18:38)
[2020-11-20] MEDS: Aspirin 81 MG TAB.CHEW PO (08:51)
[2020-11-20] MEDS: Folic Acid 1 MG Tablet PO (08:51)
[2020-11-20 09:25] LABS: Absolute Lymphocyte Count 1.27 X10^3/uL (0.83-4.51); Absolute Neutrophil Count 2.4 X10^3/uL (2.0-7.7); Basophil# 0.03 X10^3/uL; Basophil% 0.7 % (0-1); Eosinophil# 0.07 X10^3/uL; Eosinophils% 1.6 % (0-5); Hematocrit 33.2 % (40-54); Hemoglobin 10.3 g/dL (13.0-16.5); Lymphocyte # 1.27 X10^3/ul (0.83-4.51); Lymphocyte % 28.9 % (19-41); Mean Corpuscular Hgb 28.9 pg (27.0-32.0); Mean Corpuscular Volume 93.3 fL (80-94); Mean Platelet Vol. 10.1 fl (6.2-12.0); Monocyte# 0.63 X10^3/uL; Monocyte% 14.4 % (0-10); NRBC Flagged by Analyzer 0 % (0-5); Neutrophil # 2.38 X10^3/uL (2.7-7.7); Neutrophil % 54.2 % (47-70); Platelet Count 272 K/mm3 (150-450); RBC Distribution Width SD 58.2 fl (35.1-43.9); Red Blood Count 3.56 M/mm3 (4.6-6.2); White Blood Count 4.4 K/mm3 (4.4-11.0)
[2020-11-20] MEDS: Dicyclomine 10 MG Capsule 20 MG PO (09:25)
[2020-11-20] MEDS: Ibuprofen 600 MG Tablet PO ×2 (09:26→20:51)
[2020-11-20] MEDS: Thiamine Hydrochloride 100 MG Tablet PO (09:27)
[2020-11-20] MEDS: Enoxaparin 80 MG/0.8 ML Syringe SC ×2 (09:30→20:51)
[2020-11-20] MEDS: Pantoprazole Sodium 40 MG Tablet PO (09:31)
[2020-11-20] MEDS: Atorvastatin Calcium 40 MG Tablet PO (09:31)
[2020-11-20] MEDS: DULoxetine Hcl 60 MG Capsule PO (09:31)
[2020-11-20 09:47] LABS: ALB/GLOB Ratio 0.9 RATIO (0.9-2.4); AST(SGOT) 36 U/L (15-37); Alanine Aminotransfer ALT/SGPT 55 U/L (16-61); Alkaline Phosphatase 77 U/L (45-117); Anion Gap 5 (5-15); BUN 19 mg/dL (7-18); BUN/Creat Ratio 18.6 RATIO (10-20); Calcium,Total 8.7 mg/dL (8.5-10.1); Chloride 103 mmol/L (98-107); Creatinine, Serum 1.02 mg/dL (0.70-1.30); EST Glomerular Filtration Rate 78 mL/min (>60); Est Glom Filt Rate - Afr Amer 94 mL/min (>60); Estimated Creatinine Clearance 79.25 ml/min; Globulin 3.4 g/dL (2.2-4.2); Glucose 130 mg/dL (74-106); Magnesium 1.9 mg/dL (1.6-2.6); Phosphorus 3.4 mg/dL (2.5-4.9); Potassium 4.2 mmol/L (3.5-5.1); Protein, Total 6.4 g/dL (6.4-8.2); Sodium Level 138 mmol/L (136-145)
--- NOTE | 2020-11-20 10:16 | EKG12_ITS ---
Test Reason : TINGLING IN FINGERS Blood Pressure : / mmHG Vent. Rate : 066 BPM Atrial Rate : 066 BPM P-R Int : 168 ms QRS Dur : 068 ms QT Int : 390 ms P-R-T Axes : 047 044 037 degrees QTc Int : 408 ms Sinus rhythm with Premature atrial complexes Otherwise normal ECG No previous ECGs available Confirmed by JONEL OTOOLE, BIPIN ([id number]), news assignment editor AUDRA CROWELL ([id number]) on 11/23/2020 1:35:42 PM Referred By: BRYANT Confirmed By:BIPIN REMY MD
[2020-11-20 10:41] LABS: Troponin-I HS 6 pg/mL (3.0-78.0)
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
[2020-11-20] MEDS: Acetaminophen 500 MG Tablet PO (16:53)
[2020-11-20] MEDS: traZODone 100 MG Tablet PO (21:52)
[2020-11-21] VITALS (8 sets, daily range): BP systolic 96–126; BP diastolic 60–73; PULSE 60–78; RESP 16–18; TEMP 35.7–36.8; O2SAT 96–98
[2020-11-21] MEDS: hydrOXYzine PAM 25 MG Capsule 50 MG PO ×3 (06:29→22:25)
[2020-11-21] MEDS: Aspirin 81 MG TAB.CHEW PO (08:43)
[2020-11-21] MEDS: Folic Acid 1 MG Tablet PO (08:43)
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
[2020-11-21] MEDS: Atorvastatin Calcium 40 MG Tablet PO (11:08)
[2020-11-21] MEDS: Thiamine Hydrochloride 100 MG Tablet PO (11:08)
[2020-11-21] MEDS: Metoprolol(XL)Succ 25 MG Tablet PO (11:08)
[2020-11-21] MEDS: Pantoprazole Sodium 40 MG Tablet PO (11:08)
[2020-11-21] MEDS: Ipratropium/Albuterol Sulfate 3 ML AMPUL.NEB INHALATION ×2 (11:09→19:06)
[2020-11-21] MEDS: Enoxaparin 80 MG/0.8 ML Syringe SC ×2 (12:49→22:26)
[2020-11-21] MEDS: DULoxetine Hcl 60 MG Capsule PO (12:49)
--- NOTE | 2020-11-21 12:50 | NURSING ---
cymbalta and lovenox just recieved from Rx-given
[2020-11-21] MEDS: traZODone 100 MG Tablet PO (22:25)
[2020-11-21] MEDS: Metoprolol(XL)Succ 50 MG Tablet PO (22:25)
[2020-11-22] MEDS: Acetaminophen 500 MG Tablet PO ×2 (00:25→11:19)
[2020-11-22] MEDS: Gabapentin 300 MG Capsule PO (00:25)
[2020-11-22 02:36] VITALS: BP 101/65; PULSE 68; RESP 18; TEMP 36.8; O2SAT 98
[2020-11-22] MEDS: Ipratropium/Albuterol Sulfate 3 ML AMPUL.NEB INHALATION (06:58)
[2020-11-22 07:35] VITALS: PULSE 62; RESP 16; O2SAT 99
--- NOTE | 2020-11-22 08:40 | PCM.DC ---
Discharge Instructions Diet Discharge Diet: No restrictions Activity Discharge Activity: Return to Normal Activity and May Not Drive Weight Bearing Status: Weight bearing as tolerated Dressing / Incision Call your doctor if you observe: Fever of 101 or Higher, Coldness, Increased Pain, Numbness or Tingling, Change in Color, Inability to urinate, Inability to have a bowel movement, Shortness of breath, Dizziness, Fainting spells, Swelling in the ankles, Chest pain, Prolonged hiccupping, Increased palpitations (irregular heartbeat) and Calf discomfort Follow Up Care Test Results: Test results from this visit will be discussed in further detail at your follow-up appointment, if applicable. Discharge Plan Admission Admit Date/Time: 11/15/20 15:35 Primary Reason for Your Visit: Acute alcohol withdrawal syndrome Attending Provider: Sedrick Taylor Discharge Orders/Prescriptions Prescriptions: Continued atorvastatin 40 mg Tablet 40 mg PO DAILY RF: 0 trazodone 50 mg Tablet 50 mg PO QHS RF: 0 milk thistle 500 mg Capsule 1,000 mg PO DAILY RF: 0 thiamine HCl (vitamin B1) [Vitamin B-1] 100 mg Tablet 50 mg PO DAILY RF: 0 melatonin 3 mg Tablet 3 mg PO QHS RF: 0 potassium 99 mg Tablet 99 mg PO DAILY RF: 0 pantoprazole 40 mg Tablet,Delayed Release (Dr/Ec) 40 mg PO DAILY RF: 0 aspirin 81 mg Tablet,Chewable 81 mg PO DAILY RF: 0 hydroxyzine HCl 25 mg Tablet 25 mg PO TID PRN (Reason: Anxiety) RF: 0 albuterol sulfate 90 mcg/actuation Hfa Aerosol Inhaler 2 puff INHALATION DAILY PRN PRN (Reason: SOB) RF: 0 fluticasone propionate 50 mcg/actuation [place],Suspension 1 spray INTRANASAL DAILY RF: 0 magnesium 200 mg Tablet 400 mg PO DAILY RF: 0 duloxetine 30 mg Capsule,Delayed Release(Dr/Ec) 60 mg PO DAILY RF: 0 cholecalciferol (vitamin D3) [Vitamin D3] 50 mcg (2,000 unit) Tablet 50 mcg PO DAILY RF: 0 Centrum Silver Men 300-600-300 mcg Tablet 1 tab PO DAILY RF: 0 metoprolol succinate 50 mg Tablet Extended Release 24 Hr 25 mg PO DAILY Qty: 0 RF: 0 metoprolol succinate 50 mg Tablet Extended Release 24 Hr 50 mg PO QHS Qty: 0 RF: 0 Changed Eliquis 5 mg Tablet 5 mg PO BID Qty: 60 RF: 0 Referrals / Follow Up: GILES ONEAL [Other] GILES ONEAL [Other] Disposition Disposition (needs filled in before D/C Order can be placed): Home, Self Care
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
--- NOTE | 2020-11-22 10:48 | ADDICTION ---
[employer] came in to discuss PT's situation and determined PT is leaving his current home and Adult Protective Services will not need to be contacted at this time. PT reports that there is no risk of physical harm. PT will be [facility] (if [facility]) and will be picked up and transported by peer supporter Evangelist Aldrich from [facility] and he will accompany PT while collecting his belongings from son's home.
[2020-11-22 11:00] VITALS: BP 103/64; PULSE 66; RESP 18; TEMP 36.7; O2SAT 100
[2020-11-22] MEDS: Enoxaparin 80 MG/0.8 ML Syringe SC (11:12)
[2020-11-22] MEDS: Folic Acid 1 MG Tablet PO (11:13)
[2020-11-22] MEDS: DULoxetine Hcl 60 MG Capsule PO (11:13)
[2020-11-22] MEDS: hydrOXYzine PAM 25 MG Capsule 50 MG PO (11:13)
[2020-11-22] MEDS: Pantoprazole Sodium 40 MG Tablet PO (11:13)
[2020-11-22] MEDS: Atorvastatin Calcium 40 MG Tablet PO (11:13)
[2020-11-22] MEDS: Thiamine Hydrochloride 100 MG Tablet PO (11:13)
[2020-11-22] MEDS: Aspirin 81 MG TAB.CHEW PO (11:13)
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
== END 2020-11-22 14:28 | disposition home or self-care (01) | DRG 897 ==
LOC: ED 16:46 → MS2 16:59
PROVIDERS: Admitting Provider Family Medicine; Emergency Provider Emergency Medicine; Visit Provider Internal Medicine
DX: F10.230 Alcohol dependence with withdrawal, uncomplicated (principal); R44.0 Auditory hallucinations; F10.229 Alcohol dependence with intoxication, unspecified; I25.10 Atherosclerotic heart disease of native coronary artery without angina pectoris; F17.210 Nicotine dependence, cigarettes, uncomplicated; F41.9 Anxiety disorder, unspecified; I48.0 Paroxysmal atrial fibrillation; G47.33 Obstructive sleep apnea (adult) (pediatric); F32.A Depression, unspecified; H91.93 Unspecified hearing loss, bilateral; K21.9 Gastro-esophageal reflux disease without esophagitis; Y90.7 Blood alcohol level of 200-239 mg/100 ml; J43.9 Emphysema, unspecified; E78.5 Hyperlipidemia, unspecified; I10 Essential (primary) hypertension; I25.2 Old myocardial infarction; Z86.711 Personal history of pulmonary embolism; Z79.899 Other long term (current) drug therapy; Z79.01 Long term (current) use of anticoagulants; Z79.82 Long term (current) use of aspirin; Z79.51 Long term (current) use of inhaled steroids; Z86.718 Personal history of other venous thrombosis and embolism
CPT/HCPCS: 36415; 80053; 80307; 82077; 83735; 84100; 84484; 85025; 85610; 85730; 93005; 94640; 97802; 97803; 99283; 99406; J7120; A4216